=== PATIENT | male | born 1965 | race Caucasian/White ===

== ENCOUNTER 2018-05-11 11:56 | Emergency (ER) | payer SELFPAY ==
[~2018-05-11] VITALS: Ht 170.2 cm; Wt 80.7 kg
[2018-05-11 12:08] VITALS: BP 133/81
--- NOTE | 2018-05-11 12:15 | NUR ---
STREP SAMPLE COLLECTED & SENT TO THE LAB
--- NOTE | 2018-05-11 13:56 | NUR ---
PT AMBULATED TO ER BED 03
--- NOTE | 2018-05-11 14:03 | NUR ---
bib self with c/o cold symptoms for past 4 days. States he has a headache and cough. -nvd, -fever.
[2018-05-11] MEDS ORDERED: DEXAMETHASONE 10 MG/ML VIAL PO ONE (14:15)
[2018-05-11 14:28] VITALS: BP 133/81
--- NOTE | 2018-05-11 14:28 | NUR ---
Patient discharged with v/s stable. Written and verbal after care instructions given and explained. Patient alert, oriented and verbalized understanding of instructions. Ambulatory with steady gait. All questions addressed prior to discharge. ID band removed. Patient advised to follow up with PMD. Rx of azithromycin, ibuprofen, albuterol, medrol, promethazine given. Patient educated on indication of medication including possible reaction and side effects. Opportunity to ask questions provided and answered.
== END 2018-05-11 14:28 | disposition home or self-care (01) ==
LOC: MED 11:56
DX: J40 Bronchitis, not specified as acute or chronic (principal)
CPT/HCPCS: 87081; 87804; 99283; J1100; 36415